=== PATIENT | female | born 1945 | race Caucasian/White ===

== ENCOUNTER → 2017-12-03 | Outpatient (CLI) | payer MEDICARE ==
[~2017-12-03] MED LIST: ALBU90OI6; ALBU90OI6 INH; AZIT500 PO; BISA5EC PO; CHOL10002; DOCU100 PO; Detrol LA4 MG PO; Gleevec100 MG PO; Hair, Skin & N1 EACH PO; LEVO-T75 MCG PO; LEVSOD100; MELA3 PO; METAMUCIL POWD174 GM PO; MULTI-DAY PLUS1 EAC1 PO; OMEP20ER; OXYC10ER; OXYC10TA19; OXYC5 PO; PROLIA60 MG/1 ML SC; SERT50; SM CALCIUM PO; TASIGNA150 MG PO; TOLT4; Vitamin B Comple1 EA PO; Xalatan2.5 ML; [UNRECOGNIZED DRUG - REMARK]
== END ==
LOC: LAB EV 14:30 → LAB SHORT 14:30
DX: R82.90 Unspecified abnormal findings in urine (principal)
CPT/HCPCS: 87077; 87086; 87186

== ENCOUNTER → 2018-02-18 | Outpatient (CLI) | payer MEDICARE | END | disposition home or self-care (01) | LOC: LAB EV 15:45 → LAB SHORT 15:45 | DX: N39.0 Urinary tract infection, site not specified (principal) | CPT/HCPCS: 87077; 87086; 87186 ==

== ENCOUNTER → 2018-03-14 | Outpatient (CLI) | payer MEDICARE | END | disposition home or self-care (01) | LOC: LAB SHORT 14:36 → LAB EV 14:36 | DX: R30.0 Dysuria (principal) | CPT/HCPCS: 87077; 87086; 87186 ==

== ENCOUNTER → 2018-07-11 | Outpatient (CLI) | payer MEDICARE ==
[2018-07-12 14:03] LABS: Stool Occult Bld Immuno 1 Negative (NEGATIVE); Stool Occult Bld Immuno 2 Negative (NEGATIVE); Stool Occult Bld Immuno 3 Negative (NEGATIVE)
== END | disposition home or self-care (01) ==
LOC: LAB EV 12:59
PROVIDERS: Family Medicine
DX: K92.1 Melena (principal)
CPT/HCPCS: 82274

== ENCOUNTER → 2018-12-31 | Outpatient (CLI) | payer MEDICARE ==
[~2018-12-31] MED LIST changes: +Cyclobenzaprine5 MG PO; +Estrace Vagin42.5 GM VAG; +LIDOCAINE PAIN1 EACH TD; +MYRBETRIQ25 MG PO; +[UNRECOGNIZED DRUG - OTHER] PO
[2018-12-31 12:01] LABS: BASOPHILS ABSOLUTE AUTO 0.07 K/mm3 (0.00-0.23); BASOPHILS PERCENT AUTO 1 % (0-2); EOSINOPHILS ABSOLUTE AUTO 0.13 K/mm3 (0.00-0.68); EOSINOPHILS PERCENT AUTO 1 % (0-6); Hemoglobin 12.7 g/dL (11.5-16.0); IMMATURE GRAN ABSOLUTE AUTO 0.03 K/mm3 (0.00-0.10); IMMATURE GRAN PERCENT AUTO 0 % (0-1); LYMPHOCYTES ABSOLUTE AUTO 1.52 K/mm3 (0.84-5.20); LYMPHOCYTES PERCENT AUTO 13 % (21-46); MONOCYTES ABSOLUTE AUTO 0.87 K/mm3 (0.16-1.47); MONOCYTES PERCENT AUTO 8 % (4-13); Mean Corpuscular HGB 31.1 pg (26.0-34.0); Mean Corpuscular HGB Conc 32.6 g/dL (31.5-36.5); Mean Corpuscular Volume 95 fL (80-100); Mean Platelet Volume 10.1 fL (9.1-12.4); NEUTROPHILS ABSOLUTE AUTO 8.82 K/mm3 (1.96-9.15); NEUTROPHILS PERCENT AUTO 77 % (41-73); Platelet Count 279 K/mm3 (150-400); RDW Coefficient Variation 14.8 % (11.7-14.2); RDW Standard Deviation 51.9 fL (35.1-46.3); Red Blood Cell Count 4.09 M/mm3 (3.80-5.20); White Blood Cell Count 11.44 K/mm3 (4.00-11.30)
[2018-12-31 12:19] LABS: Alanine Aminotransfer (ALT/SGP 27 U/L (12-78); Albumin/Globulin Ratio 1.2 (0.8-1.8); Alk Phos 90 U/L (40-126); Anion Gap 9 mmol/L (6-16); Aspartate Aminotrans (AST/SGOT 30 U/L (12-37); Bilirubin, Total 0.4 mg/dL (0.1-1.0); Blood Urea Nitrogen 30 mg/dL (8-24); CO2, Blood 29 mmol/L (21-32); Chloride, Blood 106 mmol/L (98-108); Creatinine, Blood 0.81 mg/dL (0.40-1.00); Free Thyroxine 1.08 ng/dL (0.70-1.60); Globulin, Blood 3.4 g/dL (2.2-4.0); Glomerular Filtration Rate >60 (60-); Glucose, Blood 98 mg/dL (70-99); Sodium, Blood 144 mmol/L (136-145); Thyroid Stimulating Hormone 1.595 uIU/mL (0.360-4.800); Total Protein, Blood 7.4 g/dL (6.4-8.2)
== END | disposition home or self-care (01) ==
LOC: LAB SHORT 11:55 → LAB EV 11:55
PROVIDERS: Physician Assistant
DX: E03.9 Hypothyroidism, unspecified (principal); R42 Dizziness and giddiness; R53.83 Other fatigue
CPT/HCPCS: 80053; 84439; 84443; 84481; 85025

== ENCOUNTER → 2019-01-01 | Outpatient (CLI) | payer MEDICARE ==
[2019-01-01 12:18] LABS: Source, Urine Clean Catch
[2019-01-01 13:28] LABS: Leukocyte Esterase, Urine Neg (Neg); Nitrite, Urine Pos (Neg); Specific Gravity, Urine 1.005 (1.003-1.022)
[2019-01-01 13:29] LABS: Appearance, Urine Hazy (Clear); Bilirubin, Urine Neg (Neg); Blood, Urine Neg (Neg); Color, Urine Yellow (P-Yellow); Glucose Qualitative, Urine Neg (Normal); Ketones, Urine Neg (Neg); Protein, Urine Neg (Neg); Urobilinogen, Urine NORM (Normal); White Blood Cells, Urine 0-2 /hpf (0-5)
[2019-01-01 13:31] LABS: Bacteria Many /hpf; Red Blood Cells, Urine 0-2 /hpf (0-2); Squamous Epithelial Cells Few /hpf (Few)
== END | disposition home or self-care (01) ==
LOC: LAB EV 12:11
PROVIDERS: Physician Assistant
DX: R42 Dizziness and giddiness (principal)
CPT/HCPCS: 81001

== ENCOUNTER → 2021-05-18 | Outpatient (CLI) | payer MEDICARE ==
[~2021-05-18] MED LIST changes: +CEFDINIR300 M4 PO; +CEPH500 PO; +DONEPEZIL HCL10 M1 PO; +MEMANTINE HCL PO; +MIRALAX17 GM PO; +MIRT15 PO; +MIRT30 PO; +OCUFLOX OP; +Oxybutynin Chlor5 M1 PO; +ZOLOFT100 M8 PO
[2021-05-18 19:16] LABS: Hematocrit 37.7 % (33.0-51.0); Hemoglobin 11.9 g/dL (11.5-16.0); Mean Corpuscular HGB 32.2 pg (26.0-34.0); Mean Corpuscular HGB Conc 31.6 g/dL (31.5-36.5); Mean Corpuscular Volume 102 fL (80-100); Mean Platelet Volume 9.3 fL (9.1-12.4); Platelet Count 294 K/mm3 (150-400); RDW Coefficient Variation 13.9 % (11.7-14.2); RDW Standard Deviation 51.9 fL (35.1-46.3); White Blood Cell Count 11.13 K/mm3 (4.00-11.30)
[2021-05-18 19:25] LABS: Albumin, Blood 3.8 g/dL (3.4-5.0); Albumin/Globulin Ratio 1.1 (0.8-1.8); Bilirubin, Total 0.2 mg/dL (0.1-1.0); Bun/Creatinine Ratio 25.3 (12.0-20.0); Calcium, Blood 9.2 mg/dL (8.5-10.1); Creatinine, Blood 0.99 mg/dL (0.40-1.00); Globulin, Blood 3.5 g/dL (2.2-4.0); Potassium, Blood 4.3 mmol/L (3.5-5.5); Total Protein, Blood 7.3 g/dL (6.4-8.2)
[2021-05-18 20:03] LABS: BAND PERCENT MAN 14 % (0-8); BASOPHILS PERCENT MAN 0 % (0-2); EOSINOPHILS PERCENT MAN 0 % (0-6); LYMPHOCYTES ABSOLUTE MAN 0.22 K/mm3 (0.84-5.20); LYMPHOCYTES PERCENT MAN 2 % (21-46); MONOCYTES ABSOLUTE MAN 0.44 K/mm3 (0.16-1.47); MONOCYTES PERCENT MAN 4 % (4-13); NEUTROPHILS ABSOLUTE MAN 10.23 K/mm3 (1.96-9.15); SEG NEUTROPHILS PERCENT MAN 78 % (41-73); TOTAL CELLS COUNTED 100
[2021-05-18 20:04] LABS: METAMYELOCYTE ABSOLUTE MAN 0.22 K/mm3 (0.00-0.00); METAMYELOCYTE PERCENT MAN 2 % (0-0)
== END | disposition home or self-care (01) ==
LOC: LAB SHORT 19:05
PROVIDERS: Physician Assistant
DX: N39.0 Urinary tract infection, site not specified (principal); R50.9 Fever, unspecified; R68.89 Other general symptoms and signs
CPT/HCPCS: 80053; 85025; 87077; 87086; 87186

== ENCOUNTER 2021-05-19 15:14 | Inpatient (IN) | payer MEDICARE ==
[~2021-05-19] VITALS: Ht 160 cm; Wt 65.8 kg
[~2021-05-19 15:14] MED LIST changes: -CEFDINIR300 M4 PO; -CEPH500 PO; -DONEPEZIL HCL10 M1 PO; -MEMANTINE HCL PO; -MIRALAX17 GM PO; -MIRT15 PO; -MIRT30 PO; -OCUFLOX OP; -Oxybutynin Chlor5 M1 PO; -ZOLOFT100 M8 PO
[2021-05-19 15:54] LABS: BASOPHILS ABSOLUTE AUTO 0.03 K/mm3 (0.00-0.23); BASOPHILS PERCENT AUTO 0 % (0-2); EOSINOPHILS PERCENT AUTO 1 % (0-6); Hemoglobin 10.7 g/dL (11.5-16.0); IMMATURE GRAN ABSOLUTE AUTO 0.04 K/mm3 (0.00-0.10); IMMATURE GRAN PERCENT AUTO 0 % (0-1); LYMPHOCYTES ABSOLUTE AUTO 0.91 K/mm3 (0.84-5.20); LYMPHOCYTES PERCENT AUTO 8 % (21-46); MONOCYTES PERCENT AUTO 4 % (4-13); Mean Corpuscular HGB 31.8 pg (26.0-34.0); Mean Corpuscular HGB Conc 30.6 g/dL (31.5-36.5); Mean Corpuscular Volume 104 fL (80-100); Mean Platelet Volume 9.5 fL (9.1-12.4); NEUTROPHILS ABSOLUTE AUTO 10.37 K/mm3 (1.96-9.15); NEUTROPHILS PERCENT AUTO 87 % (41-73); Platelet Count 261 K/mm3 (150-400); RDW Coefficient Variation 13.8 % (11.7-14.2); RDW Standard Deviation 52.7 fL (35.1-46.3); Red Blood Cell Count 3.37 M/mm3 (3.80-5.20); White Blood Cell Count 11.95 K/mm3 (4.00-11.30)
[2021-05-19 16:10] LABS: Albumin, Blood 3.1 g/dL (3.4-5.0); Albumin/Globulin Ratio 0.8 (0.8-1.8); Bilirubin, Total 0.2 mg/dL (0.1-1.0); Bun/Creatinine Ratio 27.6 (12.0-20.0); Calcium, Blood 8.6 mg/dL (8.5-10.1); Creatinine, Blood 1.05 mg/dL (0.40-1.00); Globulin, Blood 3.7 g/dL (2.2-4.0); Potassium, Blood 4.1 mmol/L (3.5-5.5); Total Protein, Blood 6.8 g/dL (6.4-8.2)
[2021-05-19 17:39] LABS: Source, Urine Catheter
[2021-05-19] MEDS ORDERED: CEPH500 PO (17:43)
[2021-05-19] MEDS ORDERED: CEFDINIR300 M4 PO (17:43)
[2021-05-19] MEDS ORDERED: DONEPEZIL HCL10 M1 PO (17:44)
[2021-05-19 17:45] LABS: Appearance, Urine Cloudy (Clear); Bilirubin, Urine Neg (Neg); Blood, Urine 2+ (Neg); Color, Urine Yellow (P-Yellow); Glucose Qualitative, Urine Neg (Neg); Ketones, Urine Neg (Neg); Leukocyte Esterase, Urine 2+ (Neg); Nitrite, Urine Pos (Neg); Protein, Urine 2+ (Neg); Specific Gravity, Urine 1.025 (1.003-1.022); Urobilinogen, Urine NORM (Normal)
[2021-05-19] MEDS ORDERED: MEMANTINE HCL PO (17:45)
[2021-05-19] MEDS ORDERED: MIRALAX17 GM PO (17:46)
[2021-05-19] MEDS ORDERED: OCUFLOX OP (17:47)
[2021-05-19] MEDS ORDERED: MIRT15 PO (17:47)
[2021-05-19] MEDS ORDERED: Oxybutynin Chlor5 M1 PO (17:48)
[2021-05-19] MEDS ORDERED: ZOLOFT100 M8 PO (17:48)
[2021-05-19 17:55] LABS: Bacteria Many /hpf; Calcium Oxalate Crystals Mod /hpf; Squamous Epithelial Cells Few /hpf (Few); Yeast/Fungi Urine Mod /hpf
[2021-05-19 19:57] LABS: Influenza A, PCR NEGATIVE (NEGATIVE); Influenza B, PCR NEGATIVE (NEGATIVE); Resp Syncytial Virus, PCR NEGATIVE (NEGATIVE); SARS-Cov-2 (COVID-19) PCR, MMC NEGATIVE (NEGATIVE)
[2021-05-19] MEDS ORDERED: MIRT30 PO (21:33)
[2021-05-20 04:31] LABS: BASOPHILS ABSOLUTE AUTO 0.03 K/mm3 (0.00-0.23); BASOPHILS PERCENT AUTO 0 % (0-2); EOSINOPHILS ABSOLUTE AUTO 0.05 K/mm3 (0.00-0.68); EOSINOPHILS PERCENT AUTO 0 % (0-6); Hematocrit 34.5 % (33.0-51.0); Hemoglobin 11.1 g/dL (11.5-16.0); IMMATURE GRAN ABSOLUTE AUTO 0.07 K/mm3 (0.00-0.10); IMMATURE GRAN PERCENT AUTO 1 % (0-1); LYMPHOCYTES ABSOLUTE AUTO 0.86 K/mm3 (0.84-5.20); LYMPHOCYTES PERCENT AUTO 7 % (21-46); MONOCYTES ABSOLUTE AUTO 0.45 K/mm3 (0.16-1.47); MONOCYTES PERCENT AUTO 4 % (4-13); Mean Corpuscular HGB 32.3 pg (26.0-34.0); Mean Corpuscular HGB Conc 32.2 g/dL (31.5-36.5); Mean Corpuscular Volume 100 fL (80-100); Mean Platelet Volume 9.5 fL (9.1-12.4); NEUTROPHILS PERCENT AUTO 88 % (41-73); Platelet Count 244 K/mm3 (150-400); RDW Coefficient Variation 13.5 % (11.7-14.2); RDW Standard Deviation 49.9 fL (35.1-46.3); Red Blood Cell Count 3.44 M/mm3 (3.80-5.20); White Blood Cell Count 12.06 K/mm3 (4.00-11.30)
--- NOTE | 2021-05-20 04:42 | NUR ---
PT REMAINS IN BED SINCE ADMISSION AND IS RESTING QUIETLY IN STABLE CONDITION. AAO, C/O BACK PAIN AND MEDICATED WITH PO OXYCODONE NEEDED FOR BACK PAIN, NO OTHER COMPLAINTS. ASSISTED WITH OTHER CARE AND ADL, ASSISTED WITH BATHROOM AND TOILETING NEEDS. CALL LIGHT GIVEN TO HER AND ENCOURAGED TO CALL FOR HELP WHEN ASSISTANCE IS NEEDED SHE IS MONITORED.
[2021-05-20 06:13] LABS: Albumin, Blood 2.7 g/dL (3.4-5.0); Anion Gap 9 mmol/L (6-16); Blood Urea Nitrogen 28 mg/dL (8-24); CO2, Blood 23 mmol/L (21-32); Calcium, Blood 8.5 mg/dL (8.5-10.1); Chloride, Blood 110 mmol/L (98-108); Creatinine, Blood 0.85 mg/dL (0.40-1.00); Glomerular Filtration Rate >60 (60-); Glucose, Blood 101 mg/dL (70-99); Magnesium, Blood 1.7 mg/dL (1.6-2.4); Phosphorus, Blood 2.8 mg/dL (2.5-4.9); Sodium, Blood 142 mmol/L (136-145)
--- NOTE | 2021-05-20 16:53 | NUR ---
I went to visit patient in her room Surs 230. Patient's Nephew, Toby and patient's sister, Kamila Chiu (has POA - [phone]) were there visiting the patient. Myla currently lives in a single story home with her other sister, Dilcia, who primarily takes care of her. But feels she is unable to take care of her. Pts family has arranged for patient to move to an adult foster home in [place] ([facility]). Okay'd per Dr. Wasserman, patient will be discharging to [facility] with [facility]. Patient stated she preferred [facility]. Pt already has a wheelchair and a CPAP she uses on a daily basis.
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
[2021-05-21 04:30] LABS: BASOPHILS ABSOLUTE AUTO 0.02 K/mm3 (0.00-0.23); BASOPHILS PERCENT AUTO 0 % (0-2); EOSINOPHILS ABSOLUTE AUTO 0.07 K/mm3 (0.00-0.68); EOSINOPHILS PERCENT AUTO 1 % (0-6); Hematocrit 35.6 % (33.0-51.0); Hemoglobin 11.4 g/dL (11.5-16.0); IMMATURE GRAN ABSOLUTE AUTO 0.04 K/mm3 (0.00-0.10); IMMATURE GRAN PERCENT AUTO 0 % (0-1); LYMPHOCYTES ABSOLUTE AUTO 1.07 K/mm3 (0.84-5.20); LYMPHOCYTES PERCENT AUTO 10 % (21-46); MONOCYTES ABSOLUTE AUTO 0.61 K/mm3 (0.16-1.47); MONOCYTES PERCENT AUTO 6 % (4-13); Mean Corpuscular HGB 32.4 pg (26.0-34.0); Mean Corpuscular Volume 101 fL (80-100); Mean Platelet Volume 9.5 fL (9.1-12.4); NEUTROPHILS ABSOLUTE AUTO 8.76 K/mm3 (1.96-9.15); NEUTROPHILS PERCENT AUTO 83 % (41-73); Platelet Count 268 K/mm3 (150-400); RDW Coefficient Variation 13.7 % (11.7-14.2); RDW Standard Deviation 51.4 fL (35.1-46.3); Red Blood Cell Count 3.52 M/mm3 (3.80-5.20); White Blood Cell Count 10.57 K/mm3 (4.00-11.30)
[2021-05-21 04:51] LABS: Albumin, Blood 2.5 g/dL (3.4-5.0); Anion Gap 3 mmol/L (6-16); Blood Urea Nitrogen 20 mg/dL (8-24); Bun/Creatinine Ratio 25.8 (12.0-20.0); CO2, Blood 28 mmol/L (21-32); Calcium, Blood 8.3 mg/dL (8.5-10.1); Chloride, Blood 107 mmol/L (98-108); Creatinine, Blood 0.78 mg/dL (0.40-1.00); Glomerular Filtration Rate >60 (60-); Glucose, Blood 97 mg/dL (70-99); Magnesium, Blood 1.9 mg/dL (1.6-2.4); Phosphorus, Blood 2.4 mg/dL (2.5-4.9); Potassium, Blood 4.7 mmol/L (3.5-5.5); Sodium, Blood 138 mmol/L (136-145)
--- NOTE | 2021-05-21 04:52 | NUR ---
PT IS BED AT THIS TIME AND IS RESTING COMFORTABLY IN STABLE CONDITION. ASSISTED WITH CARE AND ADLS, MEDICATED INDICATED. PT ASSISTED WITH CARE, BATHROOMA AND TOILETING NEEDS. HER CALL LIGHT PLACED NEAR HER AND WAS ENCOURAGED TO CALL FOR HELP WHEN ASSISTANCE IS NEEDED SHE IS MONITORED.
--- NOTE | 2021-05-22 04:45 | NUR ---
PT IN BED AT THIS TIME AND IS RESTING WITH EYES CLOSED IN STABLE CONDITION. SHE IS ASSISTED WITH HER CARE, ASSISTED WITH REPOSITIONING FOR COMFORT. PT IS ENCOURAGED TO CALL FOR HELP WHEN ASSISTANCE IS NEEDED SHE IS MONITORED.
[2021-05-22 05:20] LABS: BASOPHILS ABSOLUTE AUTO 0.03 K/mm3 (0.00-0.23); BASOPHILS PERCENT AUTO 0 % (0-2); EOSINOPHILS ABSOLUTE AUTO 0.17 K/mm3 (0.00-0.68); EOSINOPHILS PERCENT AUTO 2 % (0-6); Hematocrit 34.3 % (33.0-51.0); IMMATURE GRAN ABSOLUTE AUTO 0.03 K/mm3 (0.00-0.10); IMMATURE GRAN PERCENT AUTO 0 % (0-1); LYMPHOCYTES ABSOLUTE AUTO 1.26 K/mm3 (0.84-5.20); LYMPHOCYTES PERCENT AUTO 14 % (21-46); MONOCYTES ABSOLUTE AUTO 0.87 K/mm3 (0.16-1.47); MONOCYTES PERCENT AUTO 10 % (4-13); Mean Corpuscular HGB 32.4 pg (26.0-34.0); Mean Corpuscular HGB Conc 32.1 g/dL (31.5-36.5); Mean Corpuscular Volume 101 fL (80-100); Mean Platelet Volume 9.2 fL (9.1-12.4); NEUTROPHILS ABSOLUTE AUTO 6.49 K/mm3 (1.96-9.15); NEUTROPHILS PERCENT AUTO 74 % (41-73); Platelet Count 286 K/mm3 (150-400); RDW Coefficient Variation 13.5 % (11.7-14.2); White Blood Cell Count 8.85 K/mm3 (4.00-11.30)
[2021-05-22 05:41] LABS: Albumin, Blood 2.3 g/dL (3.4-5.0); Anion Gap 4 mmol/L (6-16); Blood Urea Nitrogen 13 mg/dL (8-24); Bun/Creatinine Ratio 18.6 (12.0-20.0); CO2, Blood 31 mmol/L (21-32); Calcium, Blood 8.4 mg/dL (8.5-10.1); Chloride, Blood 106 mmol/L (98-108); Glomerular Filtration Rate >60 (60-); Glucose, Blood 93 mg/dL (70-99); Magnesium, Blood 1.7 mg/dL (1.6-2.4); Phosphorus, Blood 3.2 mg/dL (2.5-4.9); Potassium, Blood 4.7 mmol/L (3.5-5.5); Sodium, Blood 141 mmol/L (136-145)
--- NOTE | 2021-05-22 17:04 | NUR ---
SHIFT SUMMARY PT A/O X2 AND FORGETFUL. GENERALIZED WEAKNESS NOTED AND PATIENT IS BED BOUND. PT INCONT AND HEAVY WETTER, CHANGED PRN. PT VISITING WITH FAMILY FOR A LARGE PORTION OF THE SHIFT. NO C/O PAIN OR DISCOMFORT. SOME HYPOTENSION NOTED EARLIER IN THE SHIFT BUT VITALS ARE NOW STABLE. WILL REPORT TO KALA LEONARDO.
--- NOTE | 2021-05-23 04:56 | NUR ---
Pt is in bed at this time where she remains all night and is resting comfortably. Denies pain at this time, her condition is stable. Being treated with oral antibiotic for UTI, no adverse effect. Assisted with care and ADLs, assisted with turning and repositioning to enhance comfort, medicated as indicated. Her call light was place within her reach and was advised to call for help when assistance is needed as she is monitored.
--- NOTE | 2021-05-23 18:54 | NUR ---
SUMMARY: NO ACUTE CHANGE TODAY, VSS TONIGHT, A/O, SOMEWHAT FORGETFUL, PLEASENT. BED ALARM ON, PT USING CALL LIGHT. MEDICATED X1 FOR PAIN, PT REQUESTED TYLENOL. PT HAD X2 BM'S TODAY AND SERVERAL INCOT. VOIDS. PT WORKED WITH THERAPY TODAY, SEE NOTES. THIS RN SPOKE WITH RACHEL FROM "[facility]. PLAN IS THE PT WILL DC TOMORROW TO THIS [facility]. FAMILY IS AWARE. NO ACUTE SAFETY CONCERNS, WILL REPORT TO NOC RN.
--- NOTE | 2021-05-24 04:13 | NUR ---
SHIFT SUMMARY PT IN PLEASENT MOOD T/O SHIFT. PT TOLERATING PO INTAKE WELL, DENIES N/V. PT HYPOTENSIVE DURING NIGHT, PT WAS ASYMPTOMATIC AND DENIED N/V. PT RESTED COMFORTABLY IN BED T/O NIGHT. VSS. CALL LIGHT W/IN REACH, PT USING APPROPRIATELY.
[2021-05-24 04:45] LABS: BASOPHILS ABSOLUTE AUTO 0.03 K/mm3 (0.00-0.23); BASOPHILS PERCENT AUTO 0 % (0-2); EOSINOPHILS ABSOLUTE AUTO 0.18 K/mm3 (0.00-0.68); EOSINOPHILS PERCENT AUTO 2 % (0-6); Hematocrit 34.7 % (33.0-51.0); Hemoglobin 11.1 g/dL (11.5-16.0); IMMATURE GRAN ABSOLUTE AUTO 0.03 K/mm3 (0.00-0.10); IMMATURE GRAN PERCENT AUTO 0 % (0-1); LYMPHOCYTES ABSOLUTE AUTO 1.35 K/mm3 (0.84-5.20); LYMPHOCYTES PERCENT AUTO 15 % (21-46); MONOCYTES ABSOLUTE AUTO 0.95 K/mm3 (0.16-1.47); MONOCYTES PERCENT AUTO 11 % (4-13); Mean Corpuscular HGB 31.3 pg (26.0-34.0); Mean Corpuscular Volume 98 fL (80-100); Mean Platelet Volume 9.5 fL (9.1-12.4); NEUTROPHILS ABSOLUTE AUTO 6.38 K/mm3 (1.96-9.15); NEUTROPHILS PERCENT AUTO 72 % (41-73); Platelet Count 329 K/mm3 (150-400); RDW Coefficient Variation 13.2 % (11.7-14.2); RDW Standard Deviation 47.4 fL (35.1-46.3); Red Blood Cell Count 3.55 M/mm3 (3.80-5.20); White Blood Cell Count 8.92 K/mm3 (4.00-11.30)
[2021-05-24 06:01] LABS: Alanine Aminotransfer (ALT/SGP 32 U/L (12-78); Albumin, Blood 2.5 g/dL (3.4-5.0); Albumin/Globulin Ratio 0.8 (0.8-1.8); Alk Phos 67 U/L (50-136); Anion Gap 5 mmol/L (6-16); Aspartate Aminotrans (AST/SGOT 28 U/L (12-37); Bilirubin, Total 0.2 mg/dL (0.1-1.0); Blood Urea Nitrogen 20 mg/dL (8-24); Bun/Creatinine Ratio 24.4 (12.0-20.0); CO2, Blood 30 mmol/L (21-32); Calcium, Blood 8.6 mg/dL (8.5-10.1); Chloride, Blood 107 mmol/L (98-108); Creatinine, Blood 0.82 mg/dL (0.40-1.00); Globulin, Blood 3.2 g/dL (2.2-4.0); Glomerular Filtration Rate >60 (60-); Glucose, Blood 104 mg/dL (70-99); Magnesium, Blood 1.7 mg/dL (1.6-2.4); Phosphorus, Blood 3.7 mg/dL (2.5-4.9); Potassium, Blood 4.7 mmol/L (3.5-5.5); Sodium, Blood 142 mmol/L (136-145); Total Protein, Blood 5.7 g/dL (6.4-8.2)
--- NOTE | 2021-05-24 14:33 | NUR ---
REPORT PASSED TO JORDEN RAMOS AT "[facility] AT THIS TIME. TRANSPORT ARRANGED FOR PT AT 1430, AWAITING THEIR ARRIVAL
--- NOTE | 2021-05-24 14:49 | NUR ---
Per chart review with Dr. Lopez, patient is appropriate for discharge. I arranged transporation by krystal to [facility] at 2:30PM. I faxed appropriate paperwork requested by Gerda at [facility]. Per O2 Home Eval, patient is to use oxygen while sleeping with her CPAP. I ordered Home O2, to be delivered via [employer] to [facility] today. Patient is aware she is discharging and denies barriers. I also called patient's sister Kamila Chiu to let her know patient is discharging this afternoon. Discharge packet and [facility] PCS form signed by Dr. Bennett and placed in patient's [facility] lockbox.
--- NOTE | 2021-05-24 15:00 | NUR ---
DISCHARGE: TRANSPORT HERE AT 1450, PT MOVED FROM BED TO GERNEY. IV DC'D WNL. DISCHARGE PACKET GIVEN TO TRANSPORT. PT LEFT UNIT WITH HOME CPAP, PURSE, PHONE, AND HOME MEDS. LEFT UNIT WITH TRANSPORT AT 1455
== END 2021-05-24 14:49 | disposition home health service (06) | DRG 690 ==
LOC: ER 15:14 → ERHOLD 18:09 → SURS 23:15
PROVIDERS: Hospitalist; Physician Assistant; ADMIT Family Medicine
DX: N39.0 Urinary tract infection, site not specified (principal); C95.90 Leukemia, unspecified not having achieved remission; Z16.20 Resistance to unspecified antibiotic; I10 Essential (primary) hypertension; G47.33 Obstructive sleep apnea (adult) (pediatric); F03.90 Unspecified dementia, unspecified severity, without behavioral disturbance, psychotic disturbance, mood disturbance, and anxiety; Z66 Do not resuscitate; Z88.2 Allergy status to sulfonamides; Z88.8 Allergy status to other drugs, medicaments and biological substances; Z79.899 Other long term (current) drug therapy; E86.0 Dehydration; G89.29 Other chronic pain; M54.9 Dorsalgia, unspecified; Z90.49 Acquired absence of other specified parts of digestive tract; Z90.710 Acquired absence of both cervix and uterus; Z96.651 Presence of right artificial knee joint; Z87.891 Personal history of nicotine dependence
CPT/HCPCS: 0241U; 36415; 51701; 71046; 80053; 80069; 81001; 83605; 83735; 84100; 84145; 85025; 87040; 87077; 87086; 87186; 93005; 93010; 94761; 94762; 96360-59; 97110; 97162; 97166; 97530; 97535; 99285-25; A9270; J0696; J1650; J3475; J7030; J7042; J7050; J7060

== ENCOUNTER → 2021-05-19 | Outpatient (CLI) | payer MEDICARE ==
[2021-05-19 13:02] LABS: BASOPHILS ABSOLUTE AUTO 0.03 K/mm3 (0.00-0.23); BASOPHILS PERCENT AUTO 0 % (0-2); EOSINOPHILS ABSOLUTE AUTO 0.04 K/mm3 (0.00-0.68); EOSINOPHILS PERCENT AUTO 0 % (0-6); Hematocrit 34.1 % (33.0-51.0); Hemoglobin 10.9 g/dL (11.5-16.0); IMMATURE GRAN ABSOLUTE AUTO 0.03 K/mm3 (0.00-0.10); IMMATURE GRAN PERCENT AUTO 0 % (0-1); LYMPHOCYTES ABSOLUTE AUTO 1.07 K/mm3 (0.84-5.20); LYMPHOCYTES PERCENT AUTO 8 % (21-46); MONOCYTES ABSOLUTE AUTO 0.42 K/mm3 (0.16-1.47); MONOCYTES PERCENT AUTO 3 % (4-13); Mean Corpuscular HGB 32.6 pg (26.0-34.0); Mean Corpuscular Volume 102 fL (80-100); Mean Platelet Volume 9.1 fL (9.1-12.4); NEUTROPHILS PERCENT AUTO 88 % (41-73); Platelet Count 269 K/mm3 (150-400); RDW Coefficient Variation 13.8 % (11.7-14.2); Red Blood Cell Count 3.34 M/mm3 (3.80-5.20); White Blood Cell Count 13.19 K/mm3 (4.00-11.30)
[2021-05-19 13:10] LABS: Albumin, Blood 3.6 g/dL (3.4-5.0); Albumin/Globulin Ratio 1.2 (0.8-1.8); Bilirubin, Total 0.3 mg/dL (0.1-1.0); Bun/Creatinine Ratio 23.3 (12.0-20.0); Calcium, Blood 9.1 mg/dL (8.5-10.1); Creatinine, Blood 1.29 mg/dL (0.40-1.00); Globulin, Blood 3.1 g/dL (2.2-4.0); Potassium, Blood 4.1 mmol/L (3.5-5.5); Total Protein, Blood 6.7 g/dL (6.4-8.2)
== END | disposition home or self-care (01) ==
LOC: LAB 12:54 → LAB SHORT 12:54
PROVIDERS: Physician Assistant
DX: N39.0 Urinary tract infection, site not specified (principal)
CPT/HCPCS: 80053; 85025

== ENCOUNTER → 2021-06-14 | Outpatient (CLI) | payer MEDICARE ==
[~2021-06-14] MED LIST changes: +CEFDINIR300 M4 PO; +CEPH500 PO; +DONEPEZIL HCL10 M1 PO; +MEMANTINE HCL PO; +MIRALAX17 GM PO; +MIRT15 PO; +MIRT30 PO; +OCUFLOX OP; +Oxybutynin Chlor5 M1 PO; +ZOLOFT100 M8 PO
[2021-06-14 11:47] LABS: Source, Urine Clean Catch
[2021-06-14 12:18] LABS: Appearance, Urine Hazy (Clear); Color, Urine Yellow (P-Yellow); Glucose Qualitative, Urine Neg (Normal); Ketones, Urine Neg (Neg); Leukocyte Esterase, Urine 2+ (Neg); Nitrite, Urine Pos (Neg); Protein, Urine Neg (Neg); Specific Gravity, Urine 1.015 (1.003-1.022)
[2021-06-14 12:19] LABS: Bacteria Many /hpf; Bilirubin, Urine Neg (Neg); Blood, Urine 1+ (Neg); Red Blood Cells, Urine Not Seen /hpf (0-2); Squamous Epithelial Cells Few /hpf (Few); Urobilinogen, Urine NORM (Normal)
== END | disposition home or self-care (01) ==
LOC: LAB SHORT 11:33 → LAB 11:33
PROVIDERS: Family Medicine
DX: R35.0 Frequency of micturition (principal)
CPT/HCPCS: 81001; 87077; 87086; 87186

== ENCOUNTER → 2021-08-10 | Outpatient (CLI) | payer MEDICARE ==
[2021-08-10 12:28] LABS: Source, Urine Clean Catch
[2021-08-10 13:13] LABS: Appearance, Urine Cloudy (Clear); Bilirubin, Urine Neg (Neg); Blood, Urine Neg (Neg); Color, Urine Yellow (P-Yellow); Glucose Qualitative, Urine Neg (Normal); Ketones, Urine Neg (Neg); Leukocyte Esterase, Urine 1+ (Neg); Nitrite, Urine Neg (Neg); Protein, Urine Neg (Neg); Urobilinogen, Urine NORM (Normal)
[2021-08-10 13:14] LABS: Bacteria Many /hpf; Mucus Light (0-Heavy); Red Blood Cells, Urine Not Seen /hpf (0-2); Squamous Epithelial Cells Mod /hpf (Few)
== END | disposition home or self-care (01) ==
LOC: LAB SHORT 10:05
PROVIDERS: Family Medicine
DX: R30.9 Painful micturition, unspecified (principal); R32 Unspecified urinary incontinence
CPT/HCPCS: 81001; 87077; 87086; 87186

== ENCOUNTER → 2021-08-24 | Outpatient (CLI) | payer MEDICARE ==
[2021-08-24 13:09] LABS: Source, Urine Clean Catch
[2021-08-24 13:16] LABS: Appearance, Urine Cloudy (Clear); Bilirubin, Urine Neg (Neg); Blood, Urine 1+ (Neg); Color, Urine Yellow (P-Yellow); Glucose Qualitative, Urine Neg (Normal); Ketones, Urine Neg (Neg); Leukocyte Esterase, Urine 2+ (Neg); Nitrite, Urine Pos (Neg); Protein, Urine Neg (Neg); Urobilinogen, Urine NORM (Normal)
[2021-08-24 13:22] LABS: Bacteria Many /hpf; Squamous Epithelial Cells Mod /hpf (Few); White Blood Cells, Urine TNTC /hpf (0-5)
[2021-08-24 13:23] LABS: Mucus Light (0-Heavy); Yeast/Fungi Urine Few /hpf
== END | disposition home or self-care (01) ==
LOC: LAB SHORT 12:49
PROVIDERS: Family Medicine
DX: R41.82 Altered mental status, unspecified (principal)
CPT/HCPCS: 81001; 87077; 87086; 87186

== ENCOUNTER 2021-08-27 18:10 | Emergency (ER) | payer MEDICARE ==
[~2021-08-27] VITALS: Ht 154.9 cm; Wt 78.0 kg
[2021-08-27 18:44] LABS: BASOPHILS ABSOLUTE AUTO 0.03 K/mm3 (0.00-0.23); BASOPHILS PERCENT AUTO 1 % (0-2); EOSINOPHILS ABSOLUTE AUTO 0.16 K/mm3 (0.00-0.68); EOSINOPHILS PERCENT AUTO 3 % (0-6); Hematocrit 36.9 % (33.0-51.0); Hemoglobin 11.6 g/dL (11.5-16.0); IMMATURE GRAN ABSOLUTE AUTO 0.01 K/mm3 (0.00-0.10); IMMATURE GRAN PERCENT AUTO 0 % (0-1); LYMPHOCYTES PERCENT AUTO 17 % (21-46); MONOCYTES ABSOLUTE AUTO 0.69 K/mm3 (0.16-1.47); MONOCYTES PERCENT AUTO 11 % (4-13); Mean Corpuscular HGB 31.3 pg (26.0-34.0); Mean Corpuscular HGB Conc 31.4 g/dL (31.5-36.5); Mean Corpuscular Volume 100 fL (80-100); Mean Platelet Volume 11.4 fL (9.1-12.4); NEUTROPHILS ABSOLUTE AUTO 4.48 K/mm3 (1.96-9.15); NEUTROPHILS PERCENT AUTO 69 % (41-73); Platelet Count 224 K/mm3 (150-400); RDW Coefficient Variation 15.9 % (11.7-14.2); RDW Standard Deviation 58.2 fL (35.1-46.3); Red Blood Cell Count 3.71 M/mm3 (3.80-5.20); White Blood Cell Count 6.47 K/mm3 (4.00-11.30)
[2021-08-27 19:01] LABS: Albumin, Blood 3.2 g/dL (3.4-5.0); Albumin/Globulin Ratio 0.8 (0.8-1.8); Bilirubin, Total 0.3 mg/dL (0.1-1.0); Bun/Creatinine Ratio 29.1 (12.0-20.0); Calcium, Blood 8.5 mg/dL (8.5-10.1); Creatinine, Blood 0.93 mg/dL (0.40-1.00); Globulin, Blood 3.8 g/dL (2.2-4.0); Potassium, Blood 4.6 mmol/L (3.5-5.5)
== END 2021-08-27 19:50 | disposition home or self-care (01) ==
LOC: ER 18:10
PROVIDERS: Student in an Organized Health Care Education/Training Program
DX: R22.43 Localized swelling, mass and lump, lower limb, bilateral (principal); Z87.891 Personal history of nicotine dependence; Z79.2 Long term (current) use of antibiotics; Z79.899 Other long term (current) drug therapy; Z88.8 Allergy status to other drugs, medicaments and biological substances; Z88.2 Allergy status to sulfonamides
CPT/HCPCS: 36415; 80053; 83880; 84484; 85025; 93005; 93010; 99284-25

== ENCOUNTER 2021-09-04 15:03 | Emergency (ER) | payer MEDICARE ==
[~2021-09-04] VITALS: Ht 157.5 cm; Wt 81.7 kg
[2021-09-04 15:44] LABS: BASOPHILS ABSOLUTE AUTO 0.04 K/mm3 (0.00-0.23); BASOPHILS PERCENT AUTO 0 % (0-2); EOSINOPHILS ABSOLUTE AUTO 0.09 K/mm3 (0.00-0.68); EOSINOPHILS PERCENT AUTO 1 % (0-6); Hematocrit 38.5 % (33.0-51.0); Hemoglobin 12.5 g/dL (11.5-16.0); IMMATURE GRAN ABSOLUTE AUTO 0.03 K/mm3 (0.00-0.10); IMMATURE GRAN PERCENT AUTO 0 % (0-1); LYMPHOCYTES ABSOLUTE AUTO 1.15 K/mm3 (0.84-5.20); LYMPHOCYTES PERCENT AUTO 13 % (21-46); MONOCYTES ABSOLUTE AUTO 0.98 K/mm3 (0.16-1.47); MONOCYTES PERCENT AUTO 11 % (4-13); Mean Corpuscular HGB 31.4 pg (26.0-34.0); Mean Corpuscular HGB Conc 32.5 g/dL (31.5-36.5); Mean Corpuscular Volume 97 fL (80-100); Mean Platelet Volume 10.3 fL (9.1-12.4); NEUTROPHILS ABSOLUTE AUTO 6.74 K/mm3 (1.96-9.15); NEUTROPHILS PERCENT AUTO 75 % (41-73); Platelet Count 235 K/mm3 (150-400); RDW Standard Deviation 55.9 fL (35.1-46.3); Red Blood Cell Count 3.98 M/mm3 (3.80-5.20); White Blood Cell Count 9.03 K/mm3 (4.00-11.30)
[2021-09-04 16:02] LABS: Alanine Aminotransfer (ALT/SGP 32 U/L (12-78); Albumin, Blood 3.6 g/dL (3.4-5.0); Albumin/Globulin Ratio 0.9 (0.8-1.8); Alk Phos 98 U/L (50-136); Anion Gap 8 mmol/L (6-16); Aspartate Aminotrans (AST/SGOT 30 U/L (12-37); Bilirubin, Total 0.5 mg/dL (0.1-1.0); Blood Urea Nitrogen 16 mg/dL (8-24); Bun/Creatinine Ratio 23.3 (12.0-20.0); CO2, Blood 25 mmol/L (21-32); Calcium, Blood 8.9 mg/dL (8.5-10.1); Chloride, Blood 108 mmol/L (98-108); Creatinine, Blood 0.69 mg/dL (0.40-1.00); Globulin, Blood 3.9 g/dL (2.2-4.0); Glomerular Filtration Rate >60 (60-); Glucose, Blood 90 mg/dL (70-99); Potassium, Blood 3.8 mmol/L (3.5-5.5); Sodium, Blood 141 mmol/L (136-145); Total Protein, Blood 7.5 g/dL (6.4-8.2)
[2021-09-04 17:17] LABS: Source, Urine Fem Cath
[2021-09-04 17:21] LABS: Bilirubin, Urine Neg (Neg); Blood, Urine 3+ (Neg); Glucose Qualitative, Urine Neg (Neg); Ketones, Urine Neg (Neg); Leukocyte Esterase, Urine 3+ (Neg); Nitrite, Urine Neg (Neg); Protein, Urine 1+ (Neg); Urobilinogen, Urine NORM (Normal)
[2021-09-04 17:41] LABS: Appearance, Urine Hazy (Clear); Color, Urine Pale Yellow (P-Yellow)
[2021-09-04 17:43] LABS: Amorphous Light (0-Heavy); Bacteria Many /hpf; Mucus Light (0-Heavy); Squamous Epithelial Cells Few /hpf (Few); Yeast/Fungi Urine Mod /hpf
[2021-09-04] MEDS ORDERED: CEFD300 PO (21:11)
== END 2021-09-04 23:30 | disposition home or self-care (01) ==
LOC: ER 15:03
PROVIDERS: Physician Assistant
DX: G93.40 Encephalopathy, unspecified (principal); N39.0 Urinary tract infection, site not specified; Z79.899 Other long term (current) drug therapy; Z88.2 Allergy status to sulfonamides; Z88.8 Allergy status to other drugs, medicaments and biological substances
CPT/HCPCS: 36415; 70450; 80053; 81001; 82140; 82947; 84443; 85025; 87086; 93005; 93010; 96374; 96375; 99285-25; J0696; J7030

== ENCOUNTER → 2021-09-17 | Outpatient (CLI) | payer MEDICARE ==
[~2021-09-17] MED LIST changes: +CEFD300 PO
[2021-09-17 15:47] LABS: Bilirubin, Urine Neg (Neg); Blood, Urine 2+ (Neg); Glucose Qualitative, Urine Neg (Neg); Ketones, Urine Neg (Neg); Leukocyte Esterase, Urine 3+ (Neg); Nitrite, Urine Neg (Neg); Protein, Urine 2+ (Neg); Specific Gravity, Urine 1.015 (1.003-1.022); Urobilinogen, Urine NORM (Normal)
[2021-09-17 16:06] LABS: Color, Urine Pale Yellow (P-Yellow)
[2021-09-17 16:07] LABS: Appearance, Urine Cloudy (Clear); Bacteria Many /hpf; Mucus Mod (0-Heavy); Squamous Epithelial Cells Few /hpf (Few); Yeast/Fungi Urine Few /hpf
== END ==
LOC: LAB 11:05 → LAB SHORT 11:05
PROVIDERS: Family Medicine
DX: N39.0 Urinary tract infection, site not specified (principal)
CPT/HCPCS: 81001; 87086

== ENCOUNTER 2021-10-05 07:31 | Day surgery (SDC) | payer MEDICARE ==
[~2021-10-05] VITALS: Ht 162.6 cm; Wt 68.1 kg
[~2021-10-05 07:31] MED LIST changes: +Florastor250 MG PO; +GABA300 PO; +Ketoconazole120 ML; +LATA.005SO BOTHEYES; +LISI5 PO; +MELO7.5 PO; +NYSTRIT
--- NOTE | 2021-10-05 07:59 | NUR ---
10/05/21 0759 MARY JANE STONE TETRACAINE DROP AT 7:52, PLEDGETT PLACED AT 7:53
[2021-10-05] MEDS ORDERED: Gleevec100 MG (08:03)
[2021-10-05] MEDS ORDERED: HIPREX1 G1 (08:05)
== END 2021-10-05 09:25 | disposition home or self-care (01) ==
LOC: ORSCSDS 07:31
PROVIDERS: Ophthalmology
PROC: 08RK3JZ Replacement of Left Lens with Synthetic Substitute, Percutaneous Approach (ICD-10-PCS; principal; 2021-10-05 08:30)
DX: H25.12 Age-related nuclear cataract, left eye (principal); C95.10 Chronic leukemia of unspecified cell type not having achieved remission; E03.9 Hypothyroidism, unspecified; H40.9 Unspecified glaucoma; I10 Essential (primary) hypertension; J44.9 Chronic obstructive pulmonary disease, unspecified; K21.9 Gastro-esophageal reflux disease without esophagitis; G47.33 Obstructive sleep apnea (adult) (pediatric); F03.90 Unspecified dementia, unspecified severity, without behavioral disturbance, psychotic disturbance, mood disturbance, and anxiety; Z87.891 Personal history of nicotine dependence; Z79.899 Other long term (current) drug therapy
CPT/HCPCS: J2001; J2250; J3010; J3301; J7040; V2632

== ENCOUNTER → 2021-10-27 | Outpatient (CLI) | payer MEDICARE ==
[~2021-10-27] MED LIST changes: +Gleevec100 MG; +HIPREX1 G1
[2021-10-27 14:11] LABS: Source, Urine Voided
[2021-10-27 18:59] LABS: Appearance, Urine Cloudy (Clear); Bilirubin, Urine Neg (Neg); Blood, Urine 2+ (Neg); Color, Urine Yellow (P-Yellow); Glucose Qualitative, Urine Neg (Neg); Ketones, Urine Neg (Neg); Leukocyte Esterase, Urine 3+ (Neg); Nitrite, Urine Neg (Neg); Protein, Urine 2+ (Neg); Specific Gravity, Urine 1.015 (1.003-1.022); Urobilinogen, Urine NORM (Normal)
[2021-10-27 19:13] LABS: Bacteria Many /hpf; Granular Casts 0-2 /lpf (0); Hyaline Casts 0-2 /lpf (0-2); Red Blood Cells, Urine 25-50 /hpf (0-2); Squamous Epithelial Cells Mod /hpf (Few); Transitional Epithelial Cells Few /hpf (0-Rare); White Blood Cells, Urine TNTC /hpf (0-5); Yeast/Fungi Urine Mod /hpf
== END | disposition home or self-care (01) ==
LOC: LAB SHORT 14:08
PROVIDERS: Family Medicine
DX: N39.0 Urinary tract infection, site not specified (principal)
CPT/HCPCS: 81001

== ENCOUNTER → 2021-12-19 | Outpatient (CLI) | payer MEDICARE ==
[2021-12-19 12:13] LABS: Source, Urine Clean Catch
[2021-12-19 14:15] LABS: Appearance, Urine Turbid (Clear); Bilirubin, Urine Neg (Neg); Blood, Urine 2+ (Neg); Color, Urine Yellow (P-Yellow); Glucose Qualitative, Urine Neg (Neg); Ketones, Urine Neg (Neg); Leukocyte Esterase, Urine 3+ (Neg); Nitrite, Urine Pos (Neg); Protein, Urine 1+ (Neg); Specific Gravity, Urine 1.015 (1.003-1.022); Urobilinogen, Urine NORM (Normal)
[2021-12-19 14:21] LABS: Bacteria Many /hpf; Hyaline Casts 0-2 /lpf (0-2); Red Blood Cells, Urine TNTC /hpf (0-2); Squamous Epithelial Cells Few /hpf (Few); White Blood Cells, Urine TNTC /hpf (0-5)
== END | disposition home or self-care (01) ==
LOC: LAB 12:12 → LAB SHORT 12:12
PROVIDERS: Family Medicine
DX: N39.0 Urinary tract infection, site not specified (principal)
CPT/HCPCS: 81001; 87077; 87086; 87186

== ENCOUNTER → 2022-02-08 | Outpatient (CLI) | payer MEDICARE ==
[2022-02-08 19:25] LABS: Appearance, Urine Hazy (Clear); Bilirubin, Urine Neg (Neg); Blood, Urine 2+ (Neg); Glucose Qualitative, Urine Neg (Neg); Ketones, Urine Neg (Neg); Leukocyte Esterase, Urine 3+ (Neg); Nitrite, Urine Pos (Neg); Protein, Urine Neg (Neg); Urobilinogen, Urine NORM (Normal)
[2022-02-08 20:12] LABS: Color, Urine Pale Yellow (P-Yellow)
[2022-02-08 20:13] LABS: White Blood Cells, Urine 25-50 /hpf (0-5)
[2022-02-08 20:14] LABS: Bacteria Many /hpf; Squamous Epithelial Cells Few /hpf (Few)
== END | disposition home or self-care (01) ==
LOC: LAB SHORT 13:46 → LAB FUT 12-12 18:00
PROVIDERS: Family Medicine
DX: N39.0 Urinary tract infection, site not specified (principal)
CPT/HCPCS: 81001; 87077; 87086; 87186

== ENCOUNTER → 2022-04-04 | Outpatient (CLI) | payer MEDICARE ==
[2022-04-04 17:19] LABS: Source, Urine Clean Catch
[2022-04-04 17:39] LABS: Bilirubin, Urine Neg (Neg); Blood, Urine 1+ (Neg); Glucose Qualitative, Urine Neg (Normal); Ketones, Urine Neg (Neg); Leukocyte Esterase, Urine 2+ (Neg); Nitrite, Urine Pos (Neg); Protein, Urine Neg (Neg); Urobilinogen, Urine NORM (Normal)
[2022-04-04 17:40] LABS: Appearance, Urine Cloudy (Clear); Bacteria Few /hpf; Color, Urine Yellow (P-Yellow); Squamous Epithelial Cells Few /hpf (Few); White Blood Cells, Urine TNTC /hpf (0-5)
== END ==
LOC: LAB SHORT 17:16 → LAB 17:16
PROVIDERS: Family Medicine
DX: N39.0 Urinary tract infection, site not specified (principal)
CPT/HCPCS: 81001

== ENCOUNTER → 2022-04-20 | Outpatient (CLI) | payer MEDICARE | LOC: LAB 13:17 → LAB SHORT 13:17 | DX: N39.0 Urinary tract infection, site not specified (principal) | CPT/HCPCS: 87077; 87086; 87186; 99001 ==

== ENCOUNTER 2022-06-18 19:21 | Emergency (ER) | payer MEDICARE ==
[~2022-06-18] VITALS: Ht 157.5 cm; Wt 63.5 kg
== END 2022-06-18 21:37 | disposition home or self-care (01) ==
LOC: ER 19:21
DX: T17.928A Food in respiratory tract, part unspecified causing other injury, initial encounter (principal); Z88.2 Allergy status to sulfonamides; Z88.8 Allergy status to other drugs, medicaments and biological substances; Z79.899 Other long term (current) drug therapy; Z79.890 Hormone replacement therapy
CPT/HCPCS: 31720; 71045

== ENCOUNTER → 2022-08-30 | Outpatient (CLI) | payer MEDICARE ==
[2022-08-30 15:39] LABS: Source, Urine Clean Catch
[2022-08-30 18:34] LABS: Appearance, Urine Turbid (Clear); Bilirubin, Urine Neg (Neg); Blood, Urine 2+ (Neg); Color, Urine Yellow (P-Yellow); Glucose Qualitative, Urine Neg (Neg); Ketones, Urine Neg (Neg); Leukocyte Esterase, Urine 3+ (Neg); Nitrite, Urine Pos (Neg); Protein, Urine 2+ (Neg); Specific Gravity, Urine 1.015 (1.003-1.022); Urobilinogen, Urine NORM (Normal)
[2022-08-30 18:56] LABS: Bacteria Many /hpf; Red Blood Cells, Urine TNTC /hpf (0-2); White Blood Cells, Urine TNTC /hpf (0-5)
[2022-08-30 18:57] LABS: Amorphous Mod (0-Heavy); Granular Casts 0-2 /lpf (0); Hyaline Casts 0-2 /lpf (0-2)
[2022-08-30 19:03] LABS: Squamous Epithelial Cells Few /hpf (Few)
== END | disposition home or self-care (01) ==
LOC: LAB 15:38 → LAB SHORT 15:38
PROVIDERS: Family Medicine
DX: N39.0 Urinary tract infection, site not specified (principal)
CPT/HCPCS: 81001; 87077; 87086; 87186

== ENCOUNTER → 2023-02-27 | Outpatient (CLI) | payer MEDICARE ==
[2023-02-27 17:50] LABS: Appearance, Urine Hazy (Clear); Bilirubin, Urine Neg (Neg); Blood, Urine 3+ (Neg); Glucose Qualitative, Urine Neg (Neg); Ketones, Urine Neg (Neg); Leukocyte Esterase, Urine 3+ (Neg); Nitrite, Urine Neg (Neg); Protein, Urine 2+ (Neg); Urobilinogen, Urine NORM (Normal)
[2023-02-27 18:13] LABS: Color, Urine Pale Yellow (P-Yellow)
[2023-02-27 18:15] LABS: White Blood Cells, Urine TNTC /hpf (0-5)
[2023-02-27 18:18] LABS: Bacteria Many /hpf; Squamous Epithelial Cells Few /hpf (Few)
== END ==
LOC: LAB SHORT 13:35 → LAB 13:35
PROVIDERS: Family Medicine
DX: N39.0 Urinary tract infection, site not specified (principal)
CPT/HCPCS: 81001

== ENCOUNTER → 2023-03-15 | Outpatient (CLI) | payer MEDICARE ==
[2023-03-15 16:29] LABS: Appearance, Urine Cloudy (Clear); Bilirubin, Urine Neg (Neg); Blood, Urine 2+ (Neg); Color, Urine Yellow (P-Yellow); Glucose Qualitative, Urine Neg (Neg); Ketones, Urine Neg (Neg); Leukocyte Esterase, Urine 3+ (Neg); Nitrite, Urine Neg (Neg); Protein, Urine 2+ (Neg); Urobilinogen, Urine NORM (Normal)
[2023-03-15 16:51] LABS: White Blood Cells, Urine TNTC /hpf (0-5)
[2023-03-15 16:52] LABS: Bacteria Many /hpf; Squamous Epithelial Cells Mod /hpf (Few)
== END | disposition home or self-care (01) ==
LOC: LAB SHORT 11:40 → LAB 11:40
PROVIDERS: Family Medicine
DX: N39.0 Urinary tract infection, site not specified (principal)
CPT/HCPCS: 81001; 87077; 87086; 87186

== ENCOUNTER → 2023-05-07 | Outpatient (CLI) | payer MEDICARE | END | disposition home or self-care (01) | LOC: LAB 15:25 → LAB SHORT 15:25 | DX: N39.0 Urinary tract infection, site not specified (principal) | CPT/HCPCS: 87077; 87086; 87186 ==

== ENCOUNTER → 2023-06-06 | Outpatient (CLI) | payer MEDICARE | LOC: LAB 13:17 → LAB SHORT 13:17 | DX: N39.0 Urinary tract infection, site not specified (principal) | CPT/HCPCS: 87077; 87086; 87186 ==

== ENCOUNTER 2023-10-07 09:27 | Emergency (ER) | payer MEDICARE ==
[~2023-10-07] VITALS: Ht 162.6 cm; Wt 63.5 kg
[2023-10-07 09:55] VITALS: BP 131/64
[2023-10-07] MEDS ORDERED: Cephalexin Monohydrate 500 MG Cap PO ONE (10:15)
[2023-10-07] MEDS ORDERED: CEPH500 PO (10:17)
== END 2023-10-07 10:30 | disposition home or self-care (01) ==
LOC: ER 09:27
DX: N39.0 Urinary tract infection, site not specified (principal); G92.8 Other toxic encephalopathy; Z88.8 Allergy status to other drugs, medicaments and biological substances; Z88.2 Allergy status to sulfonamides; Z79.899 Other long term (current) drug therapy
CPT/HCPCS: 99282; A9270

== ENCOUNTER → 2023-11-02 | Outpatient (CLI) | payer MEDICARE ==
[~2023-11-02] MED LIST changes: +ACET325 PO; +AMOX500 PO; +CLOBETASOL EMOL15 G1; +DULCOLAX400 MG/5 M PO; +FAMO20 PO; +GUAI600T33 PO; +GUAIFENESIN ER600 MG; +IMODIUM A-D2 M1; +LIDO5TO TOP; +Voltaren100 GM
[2023-11-02 16:05] LABS: Source, Urine Straight Cath
[2023-11-02 16:14] LABS: Appearance, Urine Hazy (Clear); Bilirubin, Urine Neg (Neg); Blood, Urine 4+ (Neg); Color, Urine Yellow (P-Yellow); Glucose Qualitative, Urine Neg (Neg); Ketones, Urine Neg (Neg); Leukocyte Esterase, Urine 3+ (Neg); Nitrite, Urine Neg (Neg); Protein, Urine 1+ (Neg); Specific Gravity, Urine 1.005 (1.003-1.022); Urobilinogen, Urine NORM (Normal)
[2023-11-02 16:22] LABS: White Blood Cells, Urine 50-100 /hpf (0-5)
[2023-11-02 16:23] LABS: Bacteria Many /hpf; Squamous Epithelial Cells Mod /hpf (Few)
== END | disposition home or self-care (01) ==
LOC: LAB SHORT 12:25 → LAB 12:25
PROVIDERS: Family Medicine
DX: N39.0 Urinary tract infection, site not specified (principal)
CPT/HCPCS: 81001; 87077; 87086; 87186

== ENCOUNTER 2024-02-17 15:21 | Emergency (ER) | payer MEDICARE ==
[~2024-02-17] VITALS: Ht 152.4 cm; Wt 63.5 kg
[~2024-02-17 15:21] MED LIST changes: +ALBU90OI INH; +CEFEPIME HCL1 G1 IV; +CENTRUM SILVER1 EAC2 PO; +Clobetasol Prop50 ML TOP; +DONEPEZIL HCL5 M1 PO; +ESTRADIOL42.5 GM VAG; +HIPREX1 G1 PO; +LEVSOD75 PO; +MELATONIN TR 51 EAC1 PO; +MEMA10 PO; +METAMUCIL POWD798 GM; +METHENAMINE; +SERT100 PO; +T SAL SHAMPOO; +Voltaren100 GM TOP; +ketoconazole shampoo
[2024-02-17 18:50] VITALS: BP 156/102
== END 2024-02-17 19:20 | disposition home or self-care (01) ==
LOC: ER 15:21
DX: S00.83XA Contusion of other part of head, initial encounter (principal); S40.011A Contusion of right shoulder, initial encounter; W01.0XXA Fall on same level from slipping, tripping and stumbling without subsequent striking against object, initial encounter
CPT/HCPCS: 70450; 73030; 99284-25

== ENCOUNTER 2024-07-13 09:19 | Observation (INO) | payer MEDICARE ==
[~2024-07-13] VITALS: Ht 167.6 cm; Wt 99.8 kg
[~2024-07-13 09:19] MED LIST changes: -METAMUCIL POWD798 GM; +METAMUCIL POWD798 GM PO
[2024-07-13] MEDS ORDERED: NS 1,000 ML IV SCH (09:25)
[2024-07-13] MEDS ORDERED: CefTRIAXone Sodium 2,000 MG in NS 100 ML IV ONE (09:30)
[2024-07-13 09:50] LABS: BASOPHILS ABSOLUTE AUTO 0.05 K/mm3 (0.00-0.23); BASOPHILS PERCENT AUTO 0 % (0-2); EOSINOPHILS PERCENT AUTO 2 % (0-6); Hematocrit 37.2 % (33.0-51.0); Hemoglobin 11.9 g/dL (11.5-16.0); IMMATURE GRAN ABSOLUTE AUTO 0.03 K/mm3 (0.00-0.10); IMMATURE GRAN PERCENT AUTO 0 % (0-1); LYMPHOCYTES ABSOLUTE AUTO 0.91 K/mm3 (0.84-5.20); LYMPHOCYTES PERCENT AUTO 8 % (21-46); MONOCYTES ABSOLUTE AUTO 0.84 K/mm3 (0.16-1.47); MONOCYTES PERCENT AUTO 7 % (4-13); Mean Corpuscular HGB 28.8 pg (26.0-34.0); Mean Corpuscular Volume 90 fL (80-100); Mean Platelet Volume 9.6 fL (9.1-12.4); NEUTROPHILS ABSOLUTE AUTO 9.95 K/mm3 (1.96-9.15); NEUTROPHILS PERCENT AUTO 83 % (41-73); Platelet Count 269 K/mm3 (150-400); RDW Coefficient Variation 15.4 % (11.7-14.2); RDW Standard Deviation 50.7 fL (35.1-46.3); Red Blood Cell Count 4.13 M/mm3 (3.80-5.20); White Blood Cell Count 11.98 K/mm3 (4.00-11.30)
[2024-07-13 09:57] LABS: Source, Urine Fem Cath
[2024-07-13 10:05] LABS: Albumin, Blood 2.8 g/dL (3.4-5.0); Albumin/Globulin Ratio 0.7 (0.8-1.8); Bilirubin, Total 0.3 mg/dL (0.1-1.0); Bun/Creatinine Ratio 60.3 (12.0-20.0); Calcium, Blood 9.4 mg/dL (8.5-10.1); Creatinine, Blood 0.93 mg/dL (0.40-1.00); Potassium, Blood 4.3 mmol/L (3.5-5.5); Total Protein, Blood 6.8 g/dL (6.4-8.2)
[2024-07-13 10:17] LABS: Bilirubin, Urine Neg (Neg); Blood, Urine 4+ (Neg); Glucose Qualitative, Urine Neg (Neg); Ketones, Urine Neg (Neg); Leukocyte Esterase, Urine 3+ (Neg); Nitrite, Urine Neg (Neg); Protein, Urine 3+ (Neg); Urobilinogen, Urine NORM (Normal)
[2024-07-13 10:35] LABS: Appearance, Urine Turbid (Clear); Color, Urine Yellow (P-Yellow)
[2024-07-13 10:37] LABS: Bacteria Many /hpf; Squamous Epithelial Cells Not Seen /hpf (Few); Triple Phosphate Crystals Few /hpf; White Blood Cells, Urine 50-100 /hpf (0-5)
[2024-07-13 10:38] LABS: Amorphous Mod (0-Heavy)
[2024-07-13] MEDS ORDERED: Acetaminophen 325 MG TABLET PO PRN (14:05)
[2024-07-13] MEDS ORDERED: MELA3 PO (14:05)
[2024-07-13] MEDS ORDERED: CLOB.05TO TOP (14:06)
[2024-07-13] MEDS ORDERED: albuterol sulfate HF INH (14:08)
[2024-07-13] MEDS ORDERED: CLOBETASOL PRO118 ML TOP (14:10)
[2024-07-13] MEDS ORDERED: Sprycel20 MG PO (14:11)
[2024-07-13] MEDS ORDERED: DONEPEZIL HCL5 M2 PO (14:12)
[2024-07-13] MEDS ORDERED: ESTRACE VAGINAL CREA VAG (14:13)
[2024-07-13] MEDS ORDERED: FAMO20 PO (14:14)
[2024-07-13] MEDS ORDERED: FLU VACC TS2024-25(6MOS UP)/PF 45 MCG/0.5 ML SYRINGE IM ONE (14:15)
[2024-07-13] MEDS ORDERED: GABA300 PO (14:15)
[2024-07-13] MEDS ORDERED: NIZORAL TOP (14:16)
[2024-07-13] MEDS ORDERED: Latanoprost BOTHEYES (14:17)
[2024-07-13] MEDS ORDERED: SYNTHROID75 MCG PO (14:18)
[2024-07-13] MEDS ORDERED: ANECREAM515 GM TOP (14:19)
[2024-07-13] MEDS ORDERED: LISI5 PO (14:20)
[2024-07-13] MEDS ORDERED: ATIVAN0.5 MG PO (14:21)
[2024-07-13] MEDS ORDERED: MELO7.5 PO (14:22)
[2024-07-13] MEDS ORDERED: MEMA10 PO (14:23)
[2024-07-13] MEDS ORDERED: HIPREX 1 GM PO (14:24)
[2024-07-13] MEDS ORDERED: MIRTAZAPINE7.5 M1 PO (14:25)
[2024-07-13] MEDS ORDERED: Oxybutynin Chlor5 M1 PO (14:26)
[2024-07-13] MEDS ORDERED: MIRALAX119 G2 PO (14:27)
[2024-07-13] MEDS ORDERED: SERT100 PO (14:28)
[2024-07-13] MEDS ORDERED: Albuterol HFA200 ACT/6.7 GM INH INH PRN (14:45)
[2024-07-13 20:23] VITALS: BP 144/79
[2024-07-13] MEDS ORDERED: Latanoprost 0.005% Opth Soln 2.5 ML BOTHEYES SCH (21:00)
[2024-07-13] MEDS ORDERED: Mirtazapine 15 MG Tab PO SCH (21:00)
[2024-07-13] MEDS ORDERED: Donepezil HCl 5 MG Tab PO SCH (21:00)
[2024-07-13] MEDS ORDERED: Gabapentin 300 MG Cap PO SCH (21:00)
[2024-07-13] MEDS ORDERED: Methenamine 1 GM TAB PO SCH (21:00)
[2024-07-13] MEDS ORDERED: Memantine HCL 5 MG Tab PO SCH (21:00)
[2024-07-13] MEDS ORDERED: Melatonin 3 MG Tab PO SCH (21:00)
[2024-07-13] MEDS ORDERED: LORAZEPAM0.5 MG PO (21:46)
[2024-07-13] MEDS ORDERED: Ketoconazole120 ML TOP (21:48)
[2024-07-13] MEDS ORDERED: METHENAMINE HIPPURATE 1 GM PO (21:50)
--- NOTE | 2024-07-14 05:25 | NUR ---
SHIFT SUMMARY 78 YR F ADMITTED AT BEGINNING OF THIS SHIFT. DNR. PT IS UNABLE TO PROVIDE ANY HISTORY. HER SON WAS HERE FOR A SHORT PERIOD OF TIME BUT VERY LITTLE INFO WAS PROVIDED. PT IS RESTING COMFORTABLY AT THIS TIME. 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 PT IS CONFUSED AND JUST STARES AT YOU WHEN ASKED A QUESTION. SHE IS ON A PUREE DIET BUT IS ABLE TO TAKE HER MEDS WHOLE WITH WATER WITH NO DIFFICULTY. WILL CONTINUE TO MONITOR. BED IN LOW POSITION AND CALL LIGHT IN REACH.
[2024-07-14] MEDS ORDERED: Famotidine 20 MG Tab PO SCH (06:00)
[2024-07-14] MEDS ORDERED: Trospium Chloride 20 MG Tab PO SCH (06:00)
[2024-07-14] MEDS ORDERED: Levothyroxine Sodium 0.075 MG Tab PO SCH (06:00)
[2024-07-14 06:38] LABS: BASOPHILS ABSOLUTE AUTO 0.05 K/mm3 (0.00-0.23); BASOPHILS PERCENT AUTO 1 % (0-2); EOSINOPHILS ABSOLUTE AUTO 0.29 K/mm3 (0.00-0.68); EOSINOPHILS PERCENT AUTO 4 % (0-6); Hematocrit 38.6 % (33.0-51.0); Hemoglobin 12.3 g/dL (11.5-16.0); IMMATURE GRAN ABSOLUTE AUTO 0.03 K/mm3 (0.00-0.10); IMMATURE GRAN PERCENT AUTO 0 % (0-1); LYMPHOCYTES ABSOLUTE AUTO 1.68 K/mm3 (0.84-5.20); LYMPHOCYTES PERCENT AUTO 20 % (21-46); MONOCYTES ABSOLUTE AUTO 0.73 K/mm3 (0.16-1.47); MONOCYTES PERCENT AUTO 9 % (4-13); Mean Corpuscular HGB 28.9 pg (26.0-34.0); Mean Corpuscular HGB Conc 31.9 g/dL (31.5-36.5); Mean Corpuscular Volume 91 fL (80-100); Mean Platelet Volume 9.3 fL (9.1-12.4); NEUTROPHILS ABSOLUTE AUTO 5.52 K/mm3 (1.96-9.15); NEUTROPHILS PERCENT AUTO 67 % (41-73); Platelet Count 250 K/mm3 (150-400); RDW Coefficient Variation 14.9 % (11.7-14.2); RDW Standard Deviation 49.4 fL (35.1-46.3); Red Blood Cell Count 4.25 M/mm3 (3.80-5.20)
[2024-07-14 07:07] LABS: Bun/Creatinine Ratio 64.7 (12.0-20.0); Calcium, Blood 9.5 mg/dL (8.5-10.1); Creatinine, Blood 0.6 mg/dL (0.40-1.00); Potassium, Blood 4.2 mmol/L (3.5-5.5)
[2024-07-14 07:27] VITALS: BP 108/59
[2024-07-14] MEDS ORDERED: Lisinopril 5 MG Tab PO SCH (09:00)
[2024-07-14] MEDS ORDERED: CefTRIAXone Sodium 1,000 MG in NS 100 ML IV SCH (09:00)
[2024-07-14] MEDS ORDERED: Sertraline HCl 100 MG Tab PO SCH (09:00)
[2024-07-14] MEDS ORDERED: Meloxicam 7.5 MG Tab PO SCH (09:00)
[2024-07-14] MEDS ORDERED: Polyethylene Glycol 3350 17 gm PO SCH (09:00)
[2024-07-14] MEDS ORDERED: NS 250 ML IV PRN (09:50)
--- NOTE | 2024-07-14 16:02 | NUR ---
PT HAS BEEN AOX1-2 AND IS RESTING IN BED. PT HAS PINEDA IN PLACE PATIENT. PT DOES NOT USE CALL LIGHT AND WILL CALL OUT IF NEEDING SOMETHING. PT HAS BEEN VERY TIRED AND RESTING IN BED. REPOSTIONING EVERY 2 HRS. BED ALARM IS IN PLACE WILL CONTINUE TO MONITOR.
[2024-07-14 16:59] VITALS: BP 165/80
[2024-07-14 19:44] VITALS: BP 140/67
[2024-07-15 04:09] VITALS: BP 113/52
--- NOTE | 2024-07-15 05:11 | NUR ---
SHIFT SUMMARY 78 YR F ADMITTED ON 07/13/24. DNR. PT HAS BEEN VERY RESTLESS THIS SHIFT. SHE HAS BEEN TALKING/ ARGUING WITH HERSELF LOUDLY THROUGHOUT THE SHIFT. THE THINGS SHE SAYS ARE RANDOM AND DO NOT MAKE SENSE. SHE WILL DOZE OFF BRIEFLY THEN WAKE UP YELLING. WHEN SHE INTERACTS WITH STAFF SHE IS VERY PLEASANT AND COOPERATIVE. SHE IS CONFUSED AND DOES NOT KNOW WHERE SHE IS OR WHY SHE IS HERE. UPON ADMIT LAST NIGHT PT HAD A MEPILEX ON HER RIGHT HEEL THAT THIS NURSE PEELED BACK AND BRIEFLY LOOKED AT. IT INITIALLY WAS THOUGHT TO BE A SMALL PRESSURE ULCER. HOWEVER, TONIGHT THE MEPILEX WAS REMOVED FOR WOUND CARE AND THE PRESSURE ULCER WAS MUCH LARGER THAN INITIALLY THOUGHT. IT APPEARS TO BE A STAGE 3 (PHOTOS IN CHART). WOUND CARE WAS DONE INCLUDING CLEANSING WOUND W/ WOUND ENAMELER, PATTED DRY W/ GAUZE, NON STICK PAD PLACED THEN WRAPPED IN GAUZE AND TAPED. A STYROFOAM HEEL PROTECTOR WAS PLACED AND WRAPPED W/ NIMA BANDAGE TO AVOID SLIDING AROUND. FOOT IS ELEVATED ON PILLOWS SO THAT HEEL IS FLOATING AND NOT TOUCHING THE BED. HOSPITALIST WAS NOTIFIED OF THE WOUND. WILL CONTINUE TO MONITOR. DOES NOT TOUCH THE BED.
[2024-07-15 07:52] VITALS: BP 145/76
--- NOTE | 2024-07-15 12:39 | NUR ---
DR FOSTER NOTIFIED OF PRESSURE WOUND ON R HEEL. DR FOSTER ORDERED DAILY WOUND CARE.
[2024-07-15 15:33] VITALS: BP 145/72
--- NOTE | 2024-07-15 17:48 | NUR ---
PT IS AOX2 WITH CONFUSION AND HALLUCINATIONS. PT HAS BEEN PLEASANT, BUT WILL GET SCARED AT TIMES AND TALKS TO THINGS NOT IN ROOM. PER FAMILY THIS IS HER BASELINE. PT IS TURNED Q2 TURNS AND HAS CHRONIC PINEDA. PT DOESN'T ALWAYS USE CALL LIGHT APPROPRIATELY. BED ALARM IS IN PLACE AND CALL LIGHT SAMUEL OVALLE WILL CONTINUE TO MONITOR.
[2024-07-15 19:46] VITALS: BP 109/61
[2024-07-16 05:04] VITALS: BP 100/58
[2024-07-16 07:54] VITALS: BP 103/46
--- NOTE | 2024-07-16 08:58 | NUR ---
DR. GARBER NOTIFIED OF THIS COSMETICS PRESSER. PT IS NOT ARROUSING TO PHYSICAL STIMULI, MAP 65, NO RECENT LABS OF NOTE, DR. GARBER PLACE NEW ORDERS.
[2024-07-16] MEDS ORDERED: Lactated Ringer's 500 ML IV SCH (09:00)
[2024-07-16 09:18] LABS: Base Excess Venous 5.9 mmol/L; Bicarbonate Venous 29.5 mmol/L (24.0-30.0); PCO2 Venous 38.4 mmHg (38-42); pH Blood Venous 7.49 (7.34-7.37)
[2024-07-16 09:21] LABS: BASOPHILS ABSOLUTE AUTO 0.04 K/mm3 (0.00-0.23); BASOPHILS PERCENT AUTO 1 % (0-2); EOSINOPHILS ABSOLUTE AUTO 0.17 K/mm3 (0.00-0.68); EOSINOPHILS PERCENT AUTO 3 % (0-6); Hematocrit 37.2 % (33.0-51.0); Hemoglobin 11.9 g/dL (11.5-16.0); IMMATURE GRAN ABSOLUTE AUTO 0.01 K/mm3 (0.00-0.10); IMMATURE GRAN PERCENT AUTO 0 % (0-1); LYMPHOCYTES ABSOLUTE AUTO 1.19 K/mm3 (0.84-5.20); LYMPHOCYTES PERCENT AUTO 18 % (21-46); MONOCYTES ABSOLUTE AUTO 0.61 K/mm3 (0.16-1.47); MONOCYTES PERCENT AUTO 9 % (4-13); Mean Corpuscular HGB 28.8 pg (26.0-34.0); Mean Corpuscular Volume 90 fL (80-100); Mean Platelet Volume 9.5 fL (9.1-12.4); NEUTROPHILS ABSOLUTE AUTO 4.73 K/mm3 (1.96-9.15); NEUTROPHILS PERCENT AUTO 70 % (41-73); Platelet Count 272 K/mm3 (150-400); RDW Coefficient Variation 15.2 % (11.7-14.2); RDW Standard Deviation 49.7 fL (35.1-46.3); Red Blood Cell Count 4.13 M/mm3 (3.80-5.20); White Blood Cell Count 6.75 K/mm3 (4.00-11.30)
[2024-07-16 09:35] VITALS: BP 115/59
[2024-07-16 09:50] VITALS: BP 120/61
[2024-07-16 09:58] LABS: Bun/Creatinine Ratio 66.7 (12.0-20.0); Calcium, Blood 9.7 mg/dL (8.5-10.1); Creatinine, Blood 0.71 mg/dL (0.40-1.00); Potassium, Blood 4.4 mmol/L (3.5-5.5)
--- NOTE | 2024-07-16 09:59 | NUR ---
DR. GARBER NOTIFIED OF UPDATED ASSESSMENT. PT SLIGHT BROW RAISE WITH STERNAL RUB AND OTHER PAINFUL STIMULI. MAP NOW [address] GARBER TO SEE PT AT BEDSIDE
[2024-07-16 16:05] VITALS: BP 151/81
--- NOTE | 2024-07-16 18:23 | NUR ---
PT ALERT THIS EVENING. COMMUNICATES EFFECTIVELY WITH STAFF. INTERMITTENT CONFUSION, PT APPEARS TO BE AT BASELINE. BEDREST. CALL LIGHT IN REACH DR. GARBER UPDATED MEDS. WOUND CARE PROVIDED TO RIGHT GASTELUM AND PRASHANT.
[2024-07-16 19:53] VITALS: BP 121/61
[2024-07-17 05:00] VITALS: BP 129/68
--- NOTE | 2024-07-17 06:26 | NUR ---
SHIFT SUMMARY PT ORIENTED TO SELF ONLY. PT WITH MUMBLED SPEECH AND RAMBLED WORDS. YELLS OUT PERIODICALLY. TURNED AND REPOSITIONED THROUGHOUT THE NIGHT. HEELS FLOATED OFF BED WITH PILLOWS. PINEDA WITH FOUL SMELLING, CLOUDY URINE. BED IN LOWEST POSITION, CALL LIGHT WITHIN REACH, SIDE RAILS UP X2.
[2024-07-17 07:28] VITALS: BP 165/83
[2024-07-17 15:05] VITALS: BP 141/76
[2024-07-17] MEDS ORDERED: Bisacodyl 10 MG Supp PR ONE (16:00)
--- NOTE | 2024-07-17 19:27 | NUR ---
PT DISCHARGED HOME TO FACILITY. TRANSPORTED BY AMBULANCE. ALERT AND CONFUSED. AT BASELINE. PINEDA IN PLACE. REPORT GIVEN TO [place] AT [place] [facility].
[2024-07-18] MEDS ORDERED: Bisacodyl 10 MG Supp PR PRN (09:00)
== END 2024-07-17 18:54 | disposition home or self-care (01) ==
LOC: ER 09:19 → MEDS 09:20 → ERHOLD 09:20 → MEDS 20:01 → ENPENDDIS 07-17 16:13 → MEDS 07-17 18:54
PROVIDERS: Emergency Medicine; Family Medicine; ADMIT Student in an Organized Health Care Education/Training Program
DX: N39.0 Urinary tract infection, site not specified (principal); B96.20 Unspecified Escherichia coli [E. coli] as the cause of diseases classified elsewhere; B96.1 Klebsiella pneumoniae [K. pneumoniae] as the cause of diseases classified elsewhere; C92.10 Chronic myeloid leukemia, BCR/ABL-positive, not having achieved remission; K21.9 Gastro-esophageal reflux disease without esophagitis; I10 Essential (primary) hypertension; F32.9 Major depressive disorder, single episode, unspecified; G47.00 Insomnia, unspecified; F03.90 Unspecified dementia, unspecified severity, without behavioral disturbance, psychotic disturbance, mood disturbance, and anxiety; E03.9 Hypothyroidism, unspecified; J45.20 Mild intermittent asthma, uncomplicated; H40.10X0 Unspecified open-angle glaucoma, stage unspecified; G47.33 Obstructive sleep apnea (adult) (pediatric); Z66 Do not resuscitate; Z96.0 Presence of urogenital implants; Z87.891 Personal history of nicotine dependence; Z79.890 Hormone replacement therapy; Z79.899 Other long term (current) drug therapy; Z88.2 Allergy status to sulfonamides; Z88.6 Allergy status to analgesic agent; Z88.8 Allergy status to other drugs, medicaments and biological substances; Z90.49 Acquired absence of other specified parts of digestive tract; Z90.710 Acquired absence of both cervix and uterus
CPT/HCPCS: 36415; 70450; 80048; 80053; 81001; 82803; 85025; 87077; 87086; 87186; 94760; 96365; 96366; 96376; 99285-25; A9270; G0378; J0696; J7030; J7050; J7120